=== PATIENT | male | born 2000 | race Two or more races ===

== ENCOUNTER 2023-06-23 11:49 | Emergency (ER) | payer SELFPAY ==
[~2023-06-23] VITALS: Ht 172.7 cm; Wt 150.0 kg
[2023-06-23 12:03] VITALS: TEMP 98.5; O2SAT 100
[2023-06-23] MEDS ORDERED: AMOXICILLIN/POTASSIUM CLAVULANATE 875/125MG TAB PO ONE (15:15)
[2023-06-23] MEDS ORDERED: HYDROCODONE/ACETAMINOPHEN 5/325MG TABLET PO ONE (15:15)
[2023-06-23 15:34] LABS: BASOPHILS % 0.1 % (0.0-2.0); EOSINOPHILS % 2.4 % (0.0-5.0); HEMATOCRIT. 46.2 % (42.0-52.0); HEMOGLOBIN. 15.7 g/dL (14.0-18.0); MEAN CORPUSCULAR HEMOGLOBIN 30.7 pg (28.0-32.0); MEAN CORPUSCULAR HGB CONC 34.1 g/dL (31.0-37.0); MONOCYTES % 12.7 % (2.0-8.0); NEUTROPHILS % 57.8 % (40.0-76.0); PLATELET 252 x1000/uL (130-400); RED BLOOD CELL COUNT 5.13 mill/uL (4.7-6.1); RED CELL DISTRIBUTION WIDTH 13.1 % (11.6-14.6); WHITE BLOOD COUNT 7.8 x1000/uL (4.5-11.0)
[2023-06-23 15:46] VITALS: BP 126/86; PULSE 87; RESP 16
[2023-06-23 15:49] LABS: CHLORIDE 107 mEq/L (98-107); INDEX HEMOLYSI 1 (1-3); INDEX ICTERIC 1 (1-4); INDEX LIPEMIC 1 (1-3); SODIUM 141 mEq/L (136-145)
[2023-06-23 15:58] LABS: ALANINE AMINOTRANSFERASE 37 IU/L (13-61); ALBUMIN 4.2 g/dL (3.4-5.0); ASPARTATE AMINOTRANSFERASE 28 IU/L (15-37); BILIRUBIN TOTAL 0.8 mg/dL (0.1-1.0); CARBON DIOXIDE 28 mEq/L (21-32); CREATININE 0.9 mg/dL (0.6-1.3); GLUCOSE 101 mg/dL (70-105); PHOSPHORUS 3.3 mg/dL (2.5-4.9); UREA NITROGEN BLOOD 5 mg/dL (7-21)
[2023-06-23] MEDS ORDERED: AMOX1TAB16 MT (16:08)
== END 2023-06-23 16:17 | disposition left against medical advice (07) ==
LOC: ER 12:41
DX: S02.609A Fracture of mandible, unspecified, initial encounter for closed fracture (principal); X58.XXXA Exposure to other specified factors, initial encounter; Y93.89 Activity, other specified; Y92.89 Other specified places as the place of occurrence of the external cause; Y99.8 Other external cause status
CPT/HCPCS: 36415; 70486; 80053; 83735; 84100; 85025; 99284